=== PATIENT | male | born 1965 ===

== ENCOUNTER 2017-12-04 12:32 | Emergency (ER) | payer OTHER ==
[~2017-12-04] VITALS: Ht 175.3 cm; Wt 102.1 kg
[2017-12-04] MEDS ORDERED: DICLOFENAC POTA50 MG PO (14:53)
[2017-12-04] MEDS ORDERED: LOTRISONE CREAM45 GM TOP (14:53)
[2017-12-04] MEDS ORDERED: NEURONTIN300 MG PO (14:53)
== END 2017-12-04 14:31 | disposition home or self-care (01) ==
LOC: ER 12:32
DX: B35.4 Tinea corporis (principal); M54.31 Sciatica, right side